=== PATIENT | female | born 1970 | race American Indian/Alaskan Native ===

== ENCOUNTER 2019-07-13 22:20 | Emergency (ER) | payer OTHER ==
[2019-07-14] MEDS ORDERED: SODIUM CHLORIDE 0.9% 1000 ML 1,000 ML IV ONE (00:07)
[2019-07-14] MEDS ORDERED: KETOROLAC 60 MG/2 ML INJ IVP ONE (00:07)
[2019-07-14] MEDS ORDERED: dexAMETHasone 4 MG/ML VIAL IV STA (00:07)
[2019-07-14] MEDS ORDERED: ONDANSETRON 4 MG/2 ML INJ IV ONE (00:07)
[2019-07-14] MEDS ORDERED: MORPHINE 4 MG/1 ML INJ IV ONE (00:07)
[2019-07-14] MEDS ORDERED: diphenhydrAMINE 50 MG/ML VIAL IV ONE (00:07)
--- NOTE | 2019-07-14 00:07 | Emergency Department Report ---
ED Headache HPI - General Chief Complaint: Headache Stated Complaint: MIGRAINES Time Seen by Provider: 07/13/19 23:52 Source: patient, family Exam Limitations: no limitations - History of Present Illness Initial Comments: This is a 49-year-old female here report that she has a history of migraine headache and she is followed by primary care physician that she saw 3 days ago for migraine headache and they gave her steroid dose Dosepak and a shot of Toradol but her headache has been ongoing for 10 days and she takes Imitrex subcutaneous. She said her neurologist is in [place] and managing headache and she had a CT scan of the head at [facility] at the end of May and they told her was normal. Patient said that she has been vomiting and she cannot keep anything down and she feels weak in felt like she was in a fall and had to brace herself with her left wrist and she is having left wrist pain. Headache and left wrist pain is 10/10. Headache is located to the front of her head with some blurred vision and sensitivity to light which is typical for her migraine headache. She denies any head injury. She says she called her neurologist and her primary care and return to come to the emergency room to be seen. Patient described pain is achy to head and left wrist that headache pain is sharp and throbbing and also pain located behind her eye. Denies any shortness of breath or chest pain. Denies any nasal congestion or runny nose. Denies any cough. He denies any fever or chills or neck pain or stiffness. Timing/Duration: constant, increasing, other (10 days) Quality: severe, achy, constant, sharp, throbbing Head Injury Location: frontal Recent Head Trauma: no recent headache/trauma, chronic headaches Modifying Factors: improves with: exposure to light, movement Associated Symptoms: nausea/vomiting, vision changes, weakness. denies: confusion, fatigue, facial pain, fever/chills, flushing, loss of consciousness, nasal congestion, nasal drainage, numbness in legs/feet, rash, seizures, sinus infection, stiff neck Allergies/Adverse Reactions: Allergies No Known Allergies Allergy (Unverified 07/13/19 23:30) Home Medications: Ambulatory Orders SUMAtriptan succinate [Imitrex] 6 mg SUB-Q DAILY 07/13/19 Codeine/Butalbital/ASA/Caffein [Fiorinal with Codeine #3 Cap] 1 each PO Q8H PRN #12 capsule 07/14/19 Promethazine [Phenergan] 25 mg PO Q6HR PRN #12 tab 07/14/19 ED Review of Systems ROS: Stated complaint: MIGRAINES Other details as noted in HPI Constitutional: weakness. denies: chills, fever ENT: denies: ear pain, throat pain, congestion Respiratory: denies: cough, shortness of breath, wheezing Cardiovascular: denies: chest pain, palpitations, dyspnea on exertion, edema, syncope Gastrointestinal: nausea, vomiting. denies: abdominal pain, constipation, hematemesis, hematochezia Musculoskeletal: denies: back pain, joint swelling, arthralgia, myalgia Skin: denies: rash Neurological: headache, weakness. denies: numbness, paresthesias, confusion, abnormal gait, vertigo ED Past Medical Hx - Past Medical History Previous Medical History?: Yes Hx Headaches / Migraines: Yes Additional medical history: PE - Surgical History Past Surgical History?: Yes Hx Appendectomy: Yes Additional Surgical History: Tubal Ligation, right ankle, hernia repair, - Family History Family history: hypertension - Social History Smoking Status: Current Every Day Smoker Substance Use Type: None - Medications Home Medications: Home Medications Medication Instructions Recorded Confirmed Last Taken Type SUMAtriptan succinate [Imitrex] 6 mg SUB-Q DAILY 07/13/19 07/13/19 07/13/19 History Codeine/Butalbital/ASA/Caffein 1 each PO Q8H PRN #12 capsule 07/14/19 Unknown Rx [Fiorinal with Codeine #3 Cap] Promethazine [Phenergan] 25 mg PO Q6HR PRN #12 tab 07/14/19 Unknown Rx ED Physical Exam - General Limitations: No Limitations General appearance: alert, in no apparent distress - Head Head exam: Present: atraumatic, normocephalic, normal inspection - Expanded Head Exam Expanded Head exam: Absent: laceration, abrasion, contusion, hematoma, racoon eyes, longoria's sign, general tenderness, tenderness of temporal artery, CSF rhinorrhe a, CSF otorrhea - Eye Eye exam: Present: normal appearance, PERRL, EOMI. Absent: nystagmus, periorbital swelling, periorbital tenderness Pupils: Present: normal accommodation - ENT ENT exam: Present: normal exam, normal orophraynx, mucous membranes moist, TM's normal bilaterally, normal external ear exam - Neck Neck exam: Present: normal inspection, full ROM, other (no C-spine tenderness). Absent: tenderness, meningismus, lymphadenopathy - Respiratory Respiratory exam: Present: normal lung sounds bilaterally. Absent: respiratory distress, chest wall tenderness - Cardiovascular Cardiovascular Exam: Present: regular rate, normal rhythm, normal heart sounds - GI/Abdominal GI/Abdominal exam: Present: soft, normal bowel sounds. Absent: distended, tenderness - Extremities Exam Extremities exam: Present: normal inspection, full ROM (pain with range of motion to left wrist), tenderness (F wrist), normal capillary refill, joint swelling (F wrist minimal swelling), other (No cce. + 2 pulses in all extremities, no neurovascular compromise except for left wrist with minimal swelling.). Absent: pedal edema - Expanded Upper Extremity Exam Left General: Absent: normal inspection (left wrist with minimal swelling), laceration, abrasion Shoulder Exam: Present: normal inspection, full ROM. Absent: tenderness Upper Arm exam: Present: normal inspection, full ROM. Absent: tenderness Forearm Wrist exam: Present: normal inspection, full ROM (full range of motion but pain with range of motion to left wrist. ), tenderness (Tenderness to left wrist), swelling (left wrist). Absent: abrasion, laceration, ecchymosis, deformity, crepidus, dislocation, erythema, tenderness over anatomical snuff box, pain with axial thumb loading Hand Wrist exam: Present: normal inspection, full ROM, tenderness (left wrist), swelling (left wrist). Absent: abrasion, laceration, ecchymosis, deformity, crepidus, dislocation, erythema, amputation, nail avulsion, subungual hematoma Neuro motor exam: Present: wrist extension intact, thumb opposition intact, thumb IP flexion intact, thumb adduction intact, fingers 2-5 abduction intact Neurosensory exam: Present: 2-point discrimination, radial nerve intact, ulnar nerve intact, median nerve intact Vascular: Present: normal capillary refill, radial pulse, ulnar pulse. Absent: vascular compromise, Pallo, pulse deficit radial art, pulse deficit ulnar art, pulse deficit brachial art - Back Exam Back exam: Present: normal inspection, full ROM, other (ablates without any difficulties) - Neurological Exam Neurological exam: Present: alert, oriented X3, normal gait, reflexes normal, other (no focal neurological deficits). Absent: motor sensory deficit - Psychiatric Psychiatric exam: Present: normal affect, normal mood - Skin Skin exam: Present: warm, dry, intact, normal color. Absent: rash ED Course Vital Signs 07/13/19 07/14/19 22:23 01:27 Temperature 97.3 F L Pulse Rate 86 Respiratory 18 16 Rate Blood Pressure 150/97 O2 Sat by Pulse 96 Oximetry - Reevaluation(s) Reevaluation #1: 07/14/19 04:04 Patient given 1 L of IV fluid, Decadron 8 mg IV, Toradol 30 mg IV, morphine 4 mg IV, Benadryl 25 mg IV. Of and reevaluation she said her headache is better and she feels better. Pain is at 2 out of 10 with no blurred vision. He is able to tolerate oral liquids. Neurological exam is intact ED Medical Decision Making - Radiology Data Radiology results: report reviewed Wrist x-ray dictated by radiologist and report reviewed by myself. Please see details below. Findings [facility] [address] [place] [address] XRay Report Signed Patient: LINDA BONNER MR#: [id number] 0 : 1970 Acct:[id number] Age/Sex: 49 / F ADM Date: 07/13/19 Loc: ED Attending Dr: Ordering Physician: Tawanna Jerome MD Date of Service: 07/13/19 Procedure(s): XR wrist 3+V LT Accession Number(s): [id number] cc: Tawanna Jerome MD Fluoro Time In Minutes: Left wrist 3 views INDICATION: Left wrist pain and swelling IMPRESSION: Left wrist is intact. No fracture or subluxation. Signer Name: Luis Awad MD Signed: 07/14/2019 12:06 AM Workstation Name: [id number] Transcribed By: ROSHAN Dictated By: Luis Awad MD Electronically Authenticated By: Luis Awad MD Signed Date/Time: 07/14/195 DD/ TD/TT: - Medical Decision Making This is a 18-year-old female here for migraine headache this been ongoing for 10 days. She has a history of migraine headache and managed by neurology and primary care which she saw 3 days ago. Primary care Center to emergency room for treatment. Patient had CT scan of the hospital at the end of May and she said the CT scan was normal. Neurology has her on Imitrex subcutaneous. Physical findings for normal neurological exam. X-ray of left wrist due to injury showed no acute fracture dislocation. Physical findings for full range of motion with mild swelling and pain with range of motion. Patient pain is controlled to left wrist and had and she is able to ambulate without any difficulties. She received IV fluid and pain medication, steroids, nausea medication in emergency room and she is feeling a lot better. I discussed the patient that this she will need to follow up with her primary care and her neurologist on Monday who is located in [place] as this is where patient resides. She says she has an appointment because her neurologist is going to change her medication because it is not working for her migraine. I discussed treatment plan with her and she voiced understanding. I encouraged her that she needs to increase her fluid intake and I will prescribed Phenergan and Fioricet with codeine with discharge. Patient discharged home in stable condition and pain has improved. She is nontoxic in appearance - Differential Diagnosis FX, dislocation, migraine, sinusitis Critical care attestation.: If time is entered above; I have spent that time in minutes in the direct care of this critically ill patient, excluding procedure time. ED Disposition Clinical Impression: Arthralgia of left wrist Migraine headache without aura Qualifiers: Status migrainosus presence: without status migrainosus Intractability: not intractable Qualified Code(s): G43.009 - Migraine without aura, not intractable, without status migrainosus Nausea and vomiting Qualifiers: Vomiting type: unspecified Vomiting Intractability: non-intractable Qualified Code(s): R11.2 - Nausea with vomiting, unspecified Disposition: -01 TO HOME OR SELFCARE Is pt being admited?: No Does the pt Need Aspirin: No Condition: Stable Instructions: Arthralgia (ED), Wrist Injury (ED), Migraine Headache (ED) Additional Instructions: Please follow-up with your primary care physician and Take Fioricets with codeine and Phenergan this will help with migraine and nausea but please do not drive or operate heavy machinery with these medication as a cause drowsiness. Received fluid intake to at least 2-3 L of water and/or Gatorade daily If your condition worsens, please return to the emergency room. Rests and ice left wrist. continue to take steroid and Imitrex as prescribed by your doctor is Referrals: PRIMARY CARE, [Primary Care Provider] - 07/16/19 your urine neurologist, [Other] - 07/16/19 Forms: Accompanied Note, Work/School Release Form(ED)
--- NOTE | 2019-07-14 00:11 | XRay Report ---
Left wrist 3 views INDICATION: Left wrist pain and swelling IMPRESSION: Left wrist is intact. No fracture or subluxation. Signer Name: Luis Awad MD Signed: 07/14/2019 12:06 AM Workstation Name: [id number]
[2019-07-14 05:10] VITALS: BP 117/74
== END 2019-07-14 04:35 | disposition home or self-care (01) ==
LOC: ED 22:20
DX: G43.009 Migraine without aura, not intractable, without status migrainosus (principal); R11.2 Nausea with vomiting, unspecified; M25.532 Pain in left wrist; F17.200 Nicotine dependence, unspecified, uncomplicated; Z86.711 Personal history of pulmonary embolism; Z90.49 Acquired absence of other specified parts of digestive tract; Z98.51 Tubal ligation status; Z79.899 Other long term (current) drug therapy
CPT/HCPCS: 73110; 96361; 96374; 96375; 99284; J1100; J1200; J1885; J2270; J2405; J7030

== ENCOUNTER 2021-12-05 14:47 | Emergency (ER) | payer OTHER ==
[2021-12-05] MEDS ORDERED: IBUPROFEN 800 MG TAB PO ONE (15:53)
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
[2021-12-05 17:03] VITALS: BP 121/78
== END 2021-12-05 17:33 | disposition home or self-care (01) ==
LOC: ED 14:47
DX: S79.912A Unspecified injury of left hip, initial encounter (principal); M54.2 Cervicalgia; G43.909 Migraine, unspecified, not intractable, without status migrainosus; Z98.51 Tubal ligation status; Z79.899 Other long term (current) drug therapy; Y04.8XXA Assault by other bodily force, initial encounter; Y93.89 Activity, other specified; Y92.89 Other specified places as the place of occurrence of the external cause; Y99.8 Other external cause status
CPT/HCPCS: 72040; 99283

== ENCOUNTER 2021-12-24 10:46 | Emergency (ER) | payer OTHER ==
[2021-12-24] MEDS ORDERED: HYOSCYAMINE SUBL 0.125 MG TAB SL ONE (15:37)
[2021-12-24] MEDS ORDERED: ONDANSETRON 4 MG ODT TAB PO STA (15:37)
--- NOTE | 2021-12-24 15:49 | Emergency Department Report ---
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 She reported frequent episodes of nausea and vomiting with no hemoptysis hematemesis and hematochezia, no fever, chills, sweats. MD complaint: nausea, diarrhea -: Gradual Associated Abdominal Pain: No Location: diffuse Radiation: none Severity: mild - Related Data Home Medications Medication Instructions Recorded Confirmed Last Taken SUMAtriptan succinate [Imitrex] 6 mg SUB-Q DAILY 07/13/19 12/05/21 07/13/19 Previous Rx's Medication Instructions Recorded Last Taken Type Codeine/Butalbital/ASA/Caffein 1 each PO Q8H PRN #12 capsule 07/14/19 Unknown Rx [Fiorinal with Codeine #3 Cap] Promethazine [Phenergan] 25 mg PO Q6HR PRN #12 tab 07/14/19 Unknown Rx Naproxen 500 mg PO Q12H PRN #12 tab 12/05/21 Unknown Rx Butalb/Acetaminophen/Caffeine 1 cap PO Q6HR PRN #20 cap 12/24/21 Unknown Rx [Fioricet 50-300-40 mg CAP] Dicyclomine [Bentyl] 20 mg PO QID PRN #20 bottle 12/24/21 Unknown Rx Ondansetron [Zofran ODT TAB] 8 mg PO Q8HR #20 tab.rapdis 12/24/21 Unknown Rx Allergies Allergy/AdvReac Type Severity Reaction Status Date / Time No Known Allergies Allergy Verified 12/05/21 15:53 ED Review of Systems ROS: Stated complaint: SEVERE VOMITING/HEADACHE/ABD CRAMPS Other details as noted in HPI Comment: All other systems reviewed and negative ED Past Medical Hx - Past Medical History Hx Headaches / Migraines: Yes Additional medical history: PE - Surgical History Hx Appendectomy: Yes Additional Surgical History: Tubal Ligation, right ankle, hernia repair, - Social History Smoking Status: Never Smoker Substance Use Type: None - Medications Home Medications: Home Medications Medication Instructions Recorded Confirmed Last Taken Type SUMAtriptan succinate [Imitrex] 6 mg SUB-Q DAILY 07/13/19 12/05/21 07/13/19 History Codeine/Butalbital/ASA/Caffein 1 each PO Q8H PRN #12 capsule 07/14/19 12/05/21 Unknown Rx [Fiorinal with Codeine #3 Cap] Promethazine [Phenergan] 25 mg PO Q6HR PRN #12 tab 07/14/19 12/05/21 Unknown Rx Naproxen 500 mg PO Q12H PRN #12 tab 12/05/21 Unknown Rx Butalb/Acetaminophen/Caffeine 1 cap PO Q6HR PRN #20 cap 12/24/21 Unknown Rx [Fioricet 50-300-40 mg CAP] Dicyclomine [Bentyl] 20 mg PO QID PRN #20 bottle 12/24/21 Unknown Rx Ondansetron [Zofran ODT TAB] 8 mg PO Q8HR #20 tab.rapdis 12/24/21 Unknown Rx ED Physical Exam - General Limitations: No Limitations General appearance: alert, in no apparent distress - Head Head exam: Present: atraumatic, normocephalic - Eye Eye exam: Present: normal appearance, PERRL, EOMI. Absent: conjunctival injection, nystagmus, periorbital tenderness - ENT ENT exam: Present: normal orophraynx, mucous membranes moist, TM's normal bilaterally - Neck Neck exam: Present: normal inspection, full ROM. Absent: tenderness - Respiratory Respiratory exam: Present: normal lung sounds bilaterally. Absent: respiratory distress, wheezes, rales, rhonchi, chest wall tenderness, accessory muscle use, decreased breath sounds - Cardiovascular Cardiovascular Exam: Present: regular rate, normal rhythm, normal heart sounds. Absent: systolic murmur, diastolic murmur, rubs, gallop - GI/Abdominal GI/Abdominal exam: Present: soft, normal bowel sounds. Absent: rebound - Extremities Exam Extremities exam: Present: normal inspection, normal capillary refill - Back Exam Back exam: Present: normal inspection. Absent: CVA tenderness (R), CVA tenderness (L) - Neurological Exam Neurological exam: Present: alert, oriented X3, CN II-XII intact, normal gait - Psychiatric Psychiatric exam: Present: normal affect, normal mood. Absent: anxious, flat affect, manic, suicidal ideation - Skin Skin exam: Present: warm, dry, intact, normal color. Absent: rash ED Course Vital Signs 12/24/21 12/24/21 12/24/21 11:11 19:25 19:55 Temperature 98.3 F 98.1 F Pulse Rate 69 60 Respiratory 16 15 15 Rate Blood Pressure 121/67 Blood Pressure 121/65 [Left] O2 Sat by Pulse 98 100 100 Oximetry 12/24/21 19:57 Temperature 98.0 F Pulse Rate 66 Respiratory 15 Rate Blood Pressure 116/77 Blood Pressure [Left] O2 Sat by Pulse 100 Oximetry ED Medical Decision Making - Lab Data Result diagrams: 12/24/21 15:44 12/24/21 15:44 - Medical Decision Making The cause of the patient symptoms not clear but the patient is overall well- appearing and suspected to have a transient course of illness. Given the course and examination does not appear to be an emergent cause of the symptoms such as small bowel obstruction, coronary syndrome, bowel ischemia, DKA, pancreatitis, appendicitis, other acute abdomen or other emergent problem. Reassessment after treatment the patient is feeling much much better tolerating p.o. fluids and shows no signs of any dehydration. Disposition discharge home with prompt primary care physician follow-up in the next 24 hours strict return precautions were discussed Critical care attestation.: If time is entered above; I have spent that time in minutes in the direct care of this critically ill patient, excluding procedure time. ED Disposition Clinical Impression: Nausea, Cephalgia Disposition: 01 HOME / SELF CARE / HOMELESS Is pt being admited?: No Does the pt Need Aspirin: No Condition: Stable Instructions: Nausea, Adult, Nausea and Vomiting, Adult, [id number], Food Poisoning Prescriptions: Dicyclomine [Bentyl] 20 mg PO QID PRN #20 bottle PRN Reason: abdominal pain Butalb/Acetaminophen/Caffeine [Fioricet 50-300-40 mg CAP] 1 cap PO Q6HR PRN #20 cap PRN Reason: headache Ondansetron [Zofran ODT TAB] 8 mg PO Q8HR #20 tab.rapdis Referrals: PRIMARY MD ANNABELLA [Primary Care Provider] - 3-5 Days WILLIS MONTENEGRO MD [Staff Physician] - 3-5 Days
[2021-12-24 16:04] LABS: Basophils # (Auto) 0.1 K/mm3 (0.0-0.1); Basophils % (Auto) 0.7 % (0.0-1.8); Eosinophils % (Auto) 0.4 % (0.0-4.3); Hematocrit 41.2 % (30.3-42.9); Hemoglobin 13.5 gm/dl (10.1-14.3); Lymphocytes # (Auto) 2.5 K/mm3 (1.2-5.4); Mean Corpuscular HGB Conc 33 % (30-34); Mean Corpuscular Volume 86 fl (79-97); Monocytes # (Auto) 0.5 K/mm3 (0.0-0.8); Monocytes % (Auto) 6.4 % (0.0-7.3); Platelet Count 238 K/mm3 (140-440); Red Blood Count 4.78 M/mm3 (3.65-5.03)
[2021-12-24 16:54] LABS: Alanine Aminotransferase 16 units/L (7-56); Albumin 4.7 g/dL (3.9-5); BUN/Creatinine Ratio 40; Blood Urea Nitrogen 16 mg/dL (7-17); Calcium 9.8 mg/dL (8.4-10.2); Hemolysis Index 28
[2021-12-24] MEDS ORDERED: METOCLOPRAMIDE 10 MG/2 ML INJ IV STA (16:59)
[2021-12-24] MEDS ORDERED: diphenhydrAMINE 50 MG/ML VIAL IV STA (16:59)
[2021-12-24] MEDS ORDERED: KETOROLAC 30 MG/1 ML INJ IV STA (19:24)
[2021-12-24 19:48] LABS: Bacteria,Urine 1+ /HPF (Negative); Bilirubin,Urine NEG (Negative); Blood,Urine NEG (Negative); Color,Urine Yellow (Yellow); Mucus,Urine FEW /HPF; Protein,Urine <15 mg/dL mg/dL (Negative); Urobilinogen,Urine < 2.0 mg/dL (<2.0)
[2021-12-24 19:59] VITALS: BP 116/77
== END 2021-12-24 20:37 | disposition home or self-care (01) ==
LOC: ED 10:46
DX: R11.2 Nausea with vomiting, unspecified (principal); R51.9 Headache, unspecified; Z79.899 Other long term (current) drug therapy
CPT/HCPCS: 36415; 80053; 81001; 83690; 85025; 96374; 96375; 99283; J1200; J1885; J2765; J3490; Q0162